=== PATIENT | male | born 1970 | race Caucasian/White ===

== ENCOUNTER 2018-11-23 23:16 | Emergency (ER) | payer SELFPAY ==
[2018-11-24] MEDS: ACETAMINOPHEN 325 MG TAB PO (00:12)
== END 2018-11-24 02:25 | disposition home or self-care (01) ==
LOC: FTE 11-24 02:25
DX: S09.90XA Unspecified injury of head, initial encounter (principal); R51 Headache; W22.8XXA Striking against or struck by other objects, initial encounter; Y92.9 Unspecified place or not applicable
CPT/HCPCS: 70450; 99284-25